=== PATIENT | female | born 1985 | race African-American/Black ===

== ENCOUNTER 2018-02-10 10:27 | Emergency (ER) | payer MEDICAID ==
[~2018-02-10] VITALS: Ht 160 cm; Wt 75.0 kg
[2018-02-10 10:45] VITALS: Ht 160 cm; Wt 75.0 kg
[2018-02-10] MEDS ORDERED: IBUPROFEN800 MG PO (12:01)
[2018-02-10] MEDS ORDERED: ACETAMINOPHEN500 M1 PO (12:01)
[2018-02-10] MEDS ORDERED: PENICILLIN V P500 MG PO (12:01)
[2018-02-10] MEDS ORDERED: CYCLOBENZAPRINE10 MG PO (12:01)
[2018-02-10 12:26] VITALS: BP 122/70
== END 2018-02-10 12:27 | disposition home or self-care (01) ==
LOC: D.ER 10:27
DX: K02.9 Dental caries, unspecified (principal)